=== PATIENT | male | born 1950 | race African-American/Black ===

== ENCOUNTER 2018-07-17 16:05 | Outpatient (CLI) | payer MEDICARE ==
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
--- NOTE | 2018-07-17 17:19 | CT ---
Noncontrast low-dose CT thorax HISTORY:Nicotine abuse. COMPARISON: None TECHNIQUE: Low-dose screening lung CT is performed utilizing institutional protocol FINDINGS: There are a few scattered calcified granulomata within the lungs bilaterally. There is a noncalcified subpleural pulmonary nodule at the posterior lateral left lung base measuring 4 mm. No additional discrete pulmonary nodule is appreciated. There is mild bronchiectasis seen predominantly within the lower lobes and to a lesser extent in the upper lobes. There is mild peribronchial thickening involving the lower lobe bronchi. Adjacent groundglass densities are seen in the region of the peribronchial thickening likely attributable to i nfectious/inflammatory process. There are scattered groups of thin-walled cystic areas seen within the upper and lower lobes bilatera lly. This is related to chronic findings and may potentially be related to mild varicoid bronchiectasis scattered within the lungs. This examination is obtained without IV contrast which limits evaluation of the mediastinal and hilar structures. However, there does appear to be a 2.9 cm left hilar mass present. While this could be related to prominent vascular structure in this region, this is asymmetric compared to the contralate ral right side and is larger in size than expected for a vessel at this site. There is a mildly enlarged pretracheal lymph node seen measuring 1.3 cm in short axis dimension. Vascular calcifications are seen in the coronary arteries and involving the thoracic aorta. There are calcifications partially imaged within the gallbladder. IMPRESSION: 1. Lung RADS category 2-approximately 4 mm pulmonary nodule left lung base. Continued annual screenin g low dose CT scan in 12 months is recommended. 2. Lung Rads category S: Left hilar masslike structure unable to be further assessed due to lack of i ntravenous contrast. CT thorax with IV contrast is recommended for further evaluation. 3. Lung Rads category S: Mild bronchiectasis with mild peribronchial thickening greater in the lung b ases with scattered groundglass densities also greater in the lower lobes bilaterally suggesting infectious or inflammatory process. 4. Cholelithiasis.
== END 2018-07-17 16:06 | disposition home or self-care (01) ==
LOC: CT 16:05
PROVIDERS: ATTEND Internal Medicine
DX: F17.210 Nicotine dependence, cigarettes, uncomplicated (principal); R91.1 Solitary pulmonary nodule; J47.9 Bronchiectasis, uncomplicated; R91.8 Other nonspecific abnormal finding of lung field; K80.20 Calculus of gallbladder without cholecystitis without obstruction
CPT/HCPCS: 71046; G0297

== ENCOUNTER 2018-07-24 08:13 | Outpatient (CLI) | payer MEDICARE ==
--- NOTE | 2018-07-24 09:11 | ULT ---
ULTRASOUND RETROPERITONEUM LIMITED: (ABDOMINAL AORTA) DATE: 07/24/2018 HISTORY: Follow-up abdominal aortic aneurysm. FINDINGS: The caliber of the known fusiform aneurysm in the infrarenal abdominal aorta is approximately 3 cm AP X 3.7 cm transverse as measured on transverse ultrasound image. Follow-up CT would facilitate apples to apples comparison with CT lumbar spine of 09/01/2016 which first showed the aneurysm. IMPRESSION: 3 x 3.7 cm fusiform infrarenal abdominal aortic aneurysm.
== END 2018-07-24 08:14 | disposition home or self-care (01) ==
LOC: ULT 08:13
PROVIDERS: ATTEND Internal Medicine
DX: I71.4 Abdominal aortic aneurysm, without rupture (principal)
CPT/HCPCS: 76775

== ENCOUNTER 2019-08-12 11:30 | Inpatient (IN) | payer MEDICARE, OTHER ==
[2019-08-12 14:57] VITALS: BMI 27.1
[2019-08-12] MEDS ORDERED: Sodium Chloride 0.9% (PF) 10 ML VIAL FS PRN (16:05)
[2019-08-12] MEDS ORDERED: Dextrose 5% in Water 1,000 ML IV PRN (16:07)
[2019-08-12] MEDS ORDERED: Dextrose 50% Abboject 50 ML SYRINGE IVP PRN (16:07)
--- NOTE | 2019-08-12 16:22 | CON ---
DATE OF CONSULTATION: 08/12/2019 HISTORY OF PRESENT ILLNESS: Mr. Galindo is a very pleasant 68-year-old male. He was sent to my office last week, referred for left hilar mass. He was able to give a limited history. His told me that for 2 weeks prior to visit with me, he had difficulty finding words. PAST MEDICAL HISTORY: Remarkable for; 1. Diabetes. 2. Hypertension. 3. Long history of tobacco use, still smoking. 4. History of lipid disorder. 5. History of surgery on his left upper extremity. SOCIAL HISTORY: He is a pack and a half smoker. He drinks on the weekends. MEDICATIONS: Have been reviewed. FAMILY HISTORY: Negative for lung disease in early age. PHYSICAL EXAMINATION: GENERAL: He is in no distress. VITAL SIGNS: Blood pressure 114/69, heart rate 76, respiratory rate is 18, oximetry is 97% on room air. He is afebrile. LYMPH NODES: He has no cervical or supraclavicular lymph nodes. HEAD AND NECK: Otherwise unremarkable. LUNGS: Clear. HEART: Regular rhythm. S1, S2 are normal. No murmur. ABDOMEN: Soft and nontender. EXTREMITIES: Without clubbing, cyanosis, or edema. LABORATORY DATA: White count 10.3, hemoglobin 16.6, platelets 258 in 2013. There is no lab drawn yet for today. IMAGING DATA: MRI done yesterday showed multiple brain lesions. He has been admitted for workup and treatment of that. IMPRESSION AND PLAN: Metastatic lung cancer, cell type unknown. He will undergo bronchoscopy on morning. He will start on IV steroids today. Radiation Oncology will be consulted once we have a tissue diagnosis. Oncology will be consulted. This is a 70 minute admit, 50% of the time spent on the unit coordinating care. Job ID: [id number] MTDD
[2019-08-12] MEDS ORDERED: Pantoprazole 40 MG VIAL IVP SCH (17:00)
[2019-08-12] MEDS ORDERED: Acetaminophen/Codeine 30-300mg Tablet PO PRN (17:10)
[2019-08-12] MEDS: Dexamethasone 4 mg/ml Vial SLOW IVP SCH ×2 (17:45→23:06)
[2019-08-12] MEDS: metFORMIN 500 MG TAB PO SCH (17:47)
[2019-08-12] MEDS: Nicotine 7 MG PATCH TOP SCH (17:47)
[2019-08-12] MEDS: Montelukast Sodium 10 mg Tablet PO SCH (20:36)
[2019-08-12] MEDS: Atorvastatin Calcium 20 MG TAB PO SCH (20:36)
--- NOTE | 2019-08-12 23:40 | CON ---
DATE OF CONSULTATION: 08/12/2019 REASON FOR CONSULTATION: Mr. Galindo is a 68-year-old gentleman, who appears to have brain metastasis from a clinical stage IV, T1c N3 M1 lung carcinoma. I was asked to see him for consideration of radiation therapy. HISTORY OF PRESENT ILLNESS: Mr. Galindo is having difficulty with his speech and therefore is only able to give a somewhat limited history. He did have a CT scan of the chest a year ago after he had an abnormal CT of the chest for screening, which showed some left hilar adenopathy and some nonspecific mediastinal lymph nodes. More recently, he has been having some difficulty with word finding and he underwent an MRI of the brain, which showed multiple contrast-enhancing lesion with surrounding vasogenic edema. The largest measured 3.6 cm in the left frontal lobe. There was some mass effect. About 11 days ago, he had a CT scan of the chest, which showed a left hilar mass measuring 2.9 cm. There was subcarinal, mediastinal, and right hilar lymphadenopathy. Findings were concerning for lung cancer. He was admitted today because of his symptoms. He will be started on dexamethasone in the near future. Presently, he is not having headaches or nausea or vomiting. He denies any chest pain. Again, his history is somewhat limited because of his word-finding difficulties. PAST MEDICAL HISTORY: 1. Diabetes. 2. Hypertension. 3. Hypercholesterolemia. 4. History of surgery on his left shoulder. MEDICATIONS: 1. DuoNeb nebulizers. 2. Lipitor. 3. Celexa. 4. Decadron. 5. Insulin p.r.n. 6. Zestril. 7. Metformin. 8. Singulair. 9. Nicoderm patch. 10. Protonix. 11. Tamsulosin. ALLERGIES: NO KNOWN MEDICAL ALLERGIES. SOCIAL HISTORY: He lives in [place], [place] with his . He does smoke 1.5 packs per day. He also drinks alcohol on the weekends. Again because of his speech difficulties, not able to quantify how much. FAMILY HISTORY: His sister from "bone cancer." His mother in her 70s from diabetes. His father has , the cause of is unknown to him. There is no other family history of malignancies. REVIEW OF SYSTEMS: Twelve system review of systems is otherwise negative. PHYSICAL EXAMINATION: VITAL SIGNS: Height 5 feet 9 inches and weight 184 pounds. Blood pressure is 113/64, pulse is 79, respirations are 18, temperature 97.5, O2 saturation is 99%. CONSTITUTIONAL: He is alert and oriented, but having difficulty with his speech. His understanding and comprehension appear to be excellent. Karnofsky performance status is 70%. HEENT: Eyes; pupils are equal, round, and reactive to light. Extraocular movements are intact. ENT; oral cavity and oropharynx normal without lesion or erythema. Palate elevates symmetrically. Gingiva is intact. NECK: Supple without preauricular, submandibular, cervical, or supraclavicular adenopathy. No thyromegaly. Larynx midline. LUNGS: Breathing nonlabored. Clear to auscultation and percussion. CARDIOVASCULAR: Heart, regular rate and rhythm without murmur. No lower extremity edema. BACK: No tenderness on fist percussion of his spine. LYMPHATIC: No axillary or inguinal adenopathy. ABDOMEN: Soft, nontender, nondistended without mass or hepatosplenomegaly. Liver percusses to normal size. SKIN: Without rash or purpura. NEUROLOGIC: He does follow commands appropriately. Cranial nerves 2 through 12 are grossly intact. Motor strength is 5/5 in both upper and lower extremities in all muscle groups tested. Reflexes are diminished, but symmetrical. Gait was not tested. RADIOLOGIC DATA: CT scan of the chest from June 2018 as well as from July 2019, and MRI of the brain from July [address] of the abdomen was also personally reviewed. CT of the chest shows worsening since 1 year ago. He has a hilar mass measuring 2.9 cm. He has subcarinal, mediastinal, and right hilar adenopathy. Mediastinal adenopathy is both ipsilateral and contralateral. He has no evidence of bone or liver metastasis. MRI of the brain shows at least 8 contrast-enhancing lesions. The largest 3.6 cm in the left frontal lobe with surrounding vasogenic edema and mass effect. He also has a 1.2 cm lesion in the nadia. ASSESSMENT: Mr. Galindo is a 68-year-old gentleman who appears to have a clinical stage IV, T1c N3 M1 lung carcinoma with brain metastasis. He does not yet have tissue diagnosis. PLAN: The patient has seen Dr. Sauceda who is planning a bronchoscopy on to get tissue diagnosis. This could potentially be a small cell carcinoma of the lung or possibly even a non-small cell carcinoma of the lung. He will soon be initiated on dexamethasone. I agree with that to reduce the vasogenic edema. Hopefully, his speech will improve while on the steroids. First priority after that is to get tissue diagnosis. We can then depending on the tissue type think about how to appropriately treat him. I think he is going to need to be treated with whole-brain radiation therapy. He has too many lesions and too much volume of disease to undergo radiosurgery. The logistics of radiation as well as the benefits and risk of treatment were discussed with him. The simulation and daily treatment procedure were discussed. Side effects would include, but not be limited to skin reaction, fatigue, lower blood counts, hair losses maybe permanent, headache, nausea, vomiting, and long-term affects of radiation on the cognition including memory difficulties. In regard to the cognitive effects of radiation therapy, I would recommend that he take Namenda during the radiation and for 6 months afterwards, which has been shown to reduce the cognitive effects from radiation therapy. Time was taken to answer all the questions at this point in the process. We will get tissue diagnosis and then again discuss with him the possibility of treatment depending on the exact tissue type. Thank you for this interesting consultation. Job ID: [id number]
[2019-08-13 04:11] LABS: #Monocytes 0.2 thou/uL (0.11-0.59); #Neutrophils 6.1 thou/uL (1.40-6.50); %Basophils 0.2 % (0.0-1.0); %Eosinophils 0.1 % (0.0-10.0); %Lymphocytes 13.9 % (21.0-51.0); %Monocytes 2.2 % (0.0-10.0); %Neutrophils 83.5 % (42.0-75.0); Hemoglobin 13.8 g/dL (14.0-18.0); Mean Corpuscular HGB CONC 33.1 g/dL (32.0-36.0); Mean Corpuscular Hemoglobin 32.1 pg (27.0-31.0); Mean Corpuscular Volume 96.8 fL (78.0-98.0); Mean Platelet Volume 8.3 fL (7.4-10.4); Platelet Count 285 thou/uL (130-400); RBC Distribution Width 11.7 % (11.5-14.5); White Blood Cell (WBC) Count 7.3 thou/uL (4.8-10.8)
[2019-08-13 04:25] LABS: ALT (SGPT) 21 U/L (8-55); AST (SGOT) 16 U/L (5-34); Albumin 3.5 g/dL (3.4-4.8); Alkaline Phosphatase 86 U/L (40-110); Anion Gap 12 mmol/L (10-20); BUN (Urea Nitrogen) 16 mg/dL (8.4-25.7); Bilirubin, Direct 0.2 mg/dL (0.1-0.3); Bilirubin, Total 0.3 mg/dL (0.2-1.2); Calc. Creatinine Clearance 91 mL/min (70-130); Calcium 9.2 mg/dL (7.8-10.44); Carbon Dioxide 23 mmol/L (23-31); Chloride 105 mmol/L (98-107); Estimated GFR-MDRD Greater than 90; Glucose 143 mg/dL (80-115); Potassium 4.5 mmol/L (3.5-5.1); Protein, Total 8.4 g/dL (5.8-8.1); Sodium 135 mmol/L (136-145)
[2019-08-13] MEDS: Dexamethasone 4 mg/ml Vial SLOW IVP SCH ×4 (05:41→23:34)
[2019-08-13] MEDS: metFORMIN 500 MG TAB PO SCH ×2 (10:17→17:39)
[2019-08-13] MEDS: Tamsulosin HCl 0.4 MG CAP PO SCH (10:17)
[2019-08-13] MEDS: Citalopram 10 MG TAB PO SCH (10:18)
[2019-08-13] MEDS: Pantoprazole 40 MG VIAL IVP SCH (10:18)
[2019-08-13] MEDS: Lisinopril 2.5 MG TAB PO SCH (10:18)
[2019-08-13] MEDS ORDERED: Prevnar 13-Val Conj/PF 0.5 ML SYRINGE IM ONE (15:45)
[2019-08-13] MEDS: Nicotine 7 MG PATCH TOP SCH (15:53)
--- NOTE | 2019-08-13 16:52 | PRG ---
DATE OF SERVICE: 08/13/2019 SUBJECTIVE: Mr. Galindo is in no distress. His speech has not improved yet hopefully well. OBJECTIVE: VITAL SIGNS: Heart rate is 100, respiratory rate is 20, and oximetry is 95% on room air. LUNGS: Unchanged. HEART: Unchanged. ABDOMEN: Unchanged. IMPRESSION: 1. Lung mass. 2. Brain metastasis. I agree with Dr. Gage and most likely this will be small cell. Risks of bleeding, infection of lung, collapse of lung, less likely with bronchoscopy were explained. He is willing to proceed forward with bronchoscopy tomorrow. Job ID: [id number]
[2019-08-13] MEDS: Montelukast Sodium 10 mg Tablet PO SCH (21:17)
[2019-08-13] MEDS: Atorvastatin Calcium 20 MG TAB PO SCH (21:17)
[2019-08-14] MEDS: Dexamethasone 4 mg/ml Vial SLOW IVP SCH ×4 (05:40→23:41)
[2019-08-14] MEDS: metFORMIN 500 MG TAB PO SCH ×2 (08:00→18:42)
[2019-08-14] MEDS: Lisinopril 2.5 MG TAB PO SCH (09:00)
[2019-08-14] MEDS: Tamsulosin HCl 0.4 MG CAP PO SCH (09:00)
[2019-08-14] MEDS: Pantoprazole 40 MG VIAL IVP SCH (09:00)
[2019-08-14] MEDS: Citalopram 10 MG TAB PO SCH (09:00)
[2019-08-14 11:57] LABS: SARS-CoV-2 MS2 Positive; SARS-CoV-2 N Gene Negative; SARS-CoV-2 S Gene Negative; SARS-CoV-2 orf1ab Negative
[2019-08-14] MEDS ORDERED: Fentanyl 100 MCG/2 ML VIAL ONE (13:29)
[2019-08-14] MEDS ORDERED: Midazolam HCl 2 mg/2 ml Vial ONE (13:29)
[2019-08-14] MEDS ORDERED: SUGAMMADEX SODIUM 200 MG/2 ML VIAL ONE (14:26)
[2019-08-14] MEDS ORDERED: Ondansetron HCl/PF 4 MG/2 ML Vial IVP PRN (14:47)
[2019-08-14] MEDS ORDERED: Rocuronium Bromide 10 MG/ML (10ML VIAL) ONE (15:13)
[2019-08-14] MEDS ORDERED: Ondansetron PF 4 MG/2 ML Vial ONE (15:13)
[2019-08-14] MEDS ORDERED: diphenhydrAMINE 50 MG/ML VIAL ONE (15:13)
[2019-08-14] MEDS ORDERED: Dexamethasone 20 MG/5 ML VIAL ONE (15:13)
[2019-08-14] MEDS ORDERED: PROPOFOL 200 MG/20 ML VIAL ONE (15:13)
[2019-08-14] MEDS ORDERED: Lidocaine 1% PF 5 ML VIAL ONE (15:13)
[2019-08-14] MEDS: Nicotine 7 MG PATCH TOP SCH (18:45)
[2019-08-14] MEDS: Atorvastatin Calcium 20 MG TAB PO SCH (21:11)
[2019-08-14] MEDS: Montelukast Sodium 10 mg Tablet PO SCH (21:11)
--- NOTE | 2019-08-15 05:53 | OP ---
DATE OF PROCEDURE: 08/14/2019 PROCEDURE: Bronchoscopy. Sedation was by Anesthesia. DESCRIPTION OF PROCEDURE: The patient was intubated by Anesthesia and sedated. Bronchoscope was introduced via the endotracheal tube. Right lower lobe, right middle lobe, right upper lobe were visualized. No endobronchial lesions were seen. Partially-obstructing left upper lobe mass was seen. A partially-obstructing left lower lobe mass was seen. These were biopsied and brushed and washed. There was minimal bleeding. The patient tolerated the procedure well. He was transferred to recovery room in stable condition. Job ID: [id number]
[2019-08-15] MEDS: Dexamethasone 4 mg/ml Vial SLOW IVP SCH ×4 (05:59→23:57)
[2019-08-15] MEDS: Lisinopril 2.5 MG TAB PO SCH (08:32)
[2019-08-15] MEDS: Tamsulosin HCl 0.4 MG CAP PO SCH (08:33)
[2019-08-15] MEDS: Citalopram 10 MG TAB PO SCH (08:33)
[2019-08-15] MEDS: metFORMIN 500 MG TAB PO SCH ×2 (08:33→17:24)
[2019-08-15] MEDS: Pantoprazole 40 MG VIAL IVP SCH (08:34)
--- NOTE | 2019-08-15 13:31 | PRG ---
DATE OF SERVICE: 08/15/2019 SUBJECTIVE: Mr. Galindo is doing better today. His speech is much improved. He is having no headaches, nausea, or vomiting. He tolerated the bronchoscopy well yesterday. He has no pain or shortness of breath. He voices no other complaints. OBJECTIVE: VITAL SIGNS: Height 5 feet 9 inches, weight 184 pounds. Blood pressure 118/65, pulse is 79, respirations are 18, temperature 97.6, O2 saturation is 97%. CONSTITUTIONAL: He is alert and oriented and in no apparent distress. He is well developed and well nourished. Karnofsky performance status is 80%. Speech is much improved. HEENT: Eyes; pupils are equal, round, and reactive to light. Extraocular movements are intact. ENT; oral cavity and oropharynx are normal without lesion or erythema. Palate elevates symmetrically. Gingiva is intact. NECK: Supple without cervical or supraclavicular adenopathy. No thyromegaly. Larynx midline. LUNGS: Breathing nonlabored. Clear to auscultation. HEART: Regular rate and rhythm without murmur. No lower extremity edema. ABDOMEN: Soft, nontender, and nondistended without mass or hepatosplenomegaly. Liver percusses normal size. NEUROLOGIC: Cranial nerves 2 through 12 are grossly intact. Motor strength is 5/5 in both upper and lower extremities in all muscle groups tested. Reflexes were not tested. Speech is much improved. LABORATORY DATA: Pathology is currently pending from his bronchoscopy yesterday. ASSESSMENT: Mr. Galindo is a 68-year-old gentleman, who appears clinically to have a stage IV lung cancer. This is likely going to be small-cell carcinoma of the lung, although [id number] is also possibility. Pathology is currently pending. He has multiple brain metastases. PLAN: He is not a candidate for radiosurgery because of the number of lesions that he has in the brain and the volume of disease that he has in the brain. I think he is best managed with whole-brain radiation therapy. Regardless of which type of lung cancer he has, I think this is going to be the treatment of choice. This recommendation was made to him again today. The logistics of radiation as well as the benefits and risk of treatment were discussed. The simulation and daily treatment procedure were discussed. Side effects would include, but not be limited to skin reaction, fatigue, lower blood counts, headache, nausea, vomiting, hair loss which may be permanent, and small risk of damage to his brain which could cause cognitive effects. I have recommended that he take Namenda while on the radiation therapy. I will initiate this. Time was taken to answer his questions and his 's questions regarding his treatment options. He is agreeable to proceed with radiation as recommended. We will make arrangements for him to undergo simulation in the near future. Job ID: [id number]
--- NOTE | 2019-08-15 13:39 | PRG ---
DATE OF SERVICE: 08/15/2019 SUBJECTIVE: Speech is a little better today. He is a little quicker to respond to questions. OBJECTIVE: VITAL SIGNS: He is afebrile, heart rate 79, respiratory rate is 18, oximetry is 97%, blood pressure 118/65. LUNGS: Clear. HEART: Regular rhythm. ABDOMEN: Soft. LABORATORY DATA: Biopsies are pending. ASSESSMENT AND PLAN: Discussed treatment with Dr. Gage. Plan, which is what the wants, is to start him on radiation beginning on the next week once he is plugged into the system and discharging for outpatient radiation therapy. Hopefully, we will have pathology by Sunday. Job ID: [id number]
[2019-08-15] MEDS: Nicotine 7 MG PATCH TOP SCH (17:24)
[2019-08-15] MEDS: Atorvastatin Calcium 20 MG TAB PO SCH (20:12)
[2019-08-15] MEDS: Montelukast Sodium 10 mg Tablet PO SCH (20:12)
[2019-08-15] MEDS: Sodium Chloride 0.45% 1,000 ML IV SCH (23:59)
[2019-08-16] MEDS: Dexamethasone 4 mg/ml Vial SLOW IVP SCH ×3 (05:24→18:01)
[2019-08-16] MEDS: Lisinopril 2.5 MG TAB PO SCH (08:43)
[2019-08-16] MEDS: metFORMIN 500 MG TAB PO SCH ×2 (08:44→18:00)
[2019-08-16] MEDS: Citalopram 10 MG TAB PO SCH (08:44)
[2019-08-16] MEDS: Pantoprazole 40 MG VIAL IVP SCH (08:44)
[2019-08-16] MEDS: Tamsulosin HCl 0.4 MG CAP PO SCH (08:44)
--- NOTE | 2019-08-16 15:09 | PRG ---
DATE OF SERVICE: 08/16/2019 SUBJECTIVE: The patient is doing okay. He has no acute complaints. He is apparently scheduled to start radiation therapy to the brain on Sunday. OBJECTIVE: VITAL SIGNS: Temperature 97.7, pulse 90, respirations 18, O2 sat 97%, and blood pressure 158/81. HEENT: Unremarkable. NECK: No adenopathy or JVD. CHEST: Clear to auscultation. CARDIAC: S1 and S2, regular. ABDOMEN: Soft. EXTREMITIES: No edema. His pathology is pending. ASSESSMENT: Lung cancer with metastasis to the brain. PLAN: Hopefully home by Sunday or Sunday. Family tells me that Dr. Gage and Dr. Sauceda wanting him to be in the hospital for the first radiation treatment. Job ID: [id number]
[2019-08-16] MEDS: Nicotine 7 MG PATCH TOP SCH (18:00)
[2019-08-16] MEDS: Bisacodyl 5 MG TAB PO PRN (18:00)
[2019-08-16] MEDS: Atorvastatin Calcium 20 MG TAB PO SCH (20:34)
[2019-08-16] MEDS: Montelukast Sodium 10 mg Tablet PO SCH (20:34)
[2019-08-17] MEDS: Dexamethasone 4 mg/ml Vial SLOW IVP SCH ×3 (00:25→12:08)
[2019-08-17] MEDS: Insulin Regular 300 UNITS/3 ML VIAL SC PRN ×2 (05:53→12:08)
[2019-08-17] MEDS: Tamsulosin HCl 0.4 MG CAP PO SCH (08:30)
[2019-08-17] MEDS: Lisinopril 2.5 MG TAB PO SCH (08:30)
[2019-08-17] MEDS: metFORMIN 500 MG TAB PO SCH ×2 (08:31→17:39)
[2019-08-17] MEDS: Citalopram 10 MG TAB PO SCH (08:31)
[2019-08-17] MEDS: Bisacodyl 5 MG TAB PO PRN (08:31)
[2019-08-17] MEDS: Pantoprazole 40 MG VIAL IVP SCH (08:31)
--- NOTE | 2019-08-17 13:06 | PRG ---
DATE OF SERVICE: 08/17/2019 SUBJECTIVE: The patient is doing reasonably well. He has had no seizure activity. No numbness, no tingling. OBJECTIVE: VITAL SIGNS: Temperature 98.4, pulse 85, respirations 16, O2 saturation 95% on room air, blood pressure 124/66. HEENT: Unremarkable. NECK: No adenopathy or JVD. CHEST: Clear. CARDIAC: S1, S2. Regular. ABDOMEN: Soft. EXTREMITIES: No edema. ASSESSMENT: The patient has metastatic lung cancer. PLAN: Await pathology results. I believe he will have radiation therapy starting tomorrow. Can likely go home Sunday if everything is okay. Job ID: [id number]
[2019-08-17] MEDS: Nicotine 7 MG PATCH TOP SCH (17:39)
[2019-08-17] MEDS: Dexamethasone 1 MG TAB PO SCH (17:39)
[2019-08-17] MEDS: Atorvastatin Calcium 20 MG TAB PO SCH (21:31)
[2019-08-17] MEDS: Montelukast Sodium 10 mg Tablet PO SCH (21:31)
[2019-08-18] MEDS: Citalopram 10 MG TAB PO SCH (08:40)
[2019-08-18] MEDS: Lisinopril 2.5 MG TAB PO SCH (08:44)
[2019-08-18] MEDS: Dexamethasone 1 MG TAB PO SCH ×2 (08:44→16:08)
[2019-08-18] MEDS: Tamsulosin HCl 0.4 MG CAP PO SCH (08:45)
[2019-08-18] MEDS: metFORMIN 500 MG TAB PO SCH ×2 (08:45→16:08)
--- NOTE | 2019-08-18 10:13 | PRG ---
DATE OF SERVICE: 08/18/2019 SUBJECTIVE: Ezra Galindo, this morning, is awake, alert, and responsive. No respiratory distress. OBJECTIVE: VITAL SIGNS: Temperature 98, blood pressure 110/62, pulse 72, saturations 98% on room air. CHEST: Decreased breath sounds in left lung. CARDIAC: Normal S1, S2. No gallops. ABDOMEN: No masses. ASSESSMENT AND PLAN: Metastatic cancer, awaiting final path. He was started on Decadron, neb treatments, supportive care. Await path. Disposition thereafter home. Followup by Oncology as outpatient. Job ID: [id number]
[2019-08-18] MEDS: Nicotine 7 MG PATCH TOP SCH (16:09)
[2019-08-18] MEDS: Sodium Chloride 0.45% 1,000 ML IV SCH (16:14)
[2019-08-18] MEDS: Atorvastatin Calcium 20 MG TAB PO SCH (20:53)
[2019-08-18] MEDS: Montelukast Sodium 10 mg Tablet PO SCH (20:54)
--- NOTE | 2019-08-18 22:57 | CON ---
DATE OF CONSULTATION: REASON FOR CONSULTATION: Lung cancer. HISTORY OF PRESENT ILLNESS: Mr. Galindo is a pleasant 68-year-old gentleman with an [id number] history of smoking, who had a CT of the lung for screening in June 2018. There was some mild abnormality, so then he underwent a chest CT in 2018 that showed a 2.4 cm lymph node of the left hilar area. It was unclear what happened over the next year. However, he presented in June 2019 to his primary care for weight loss. Repeat CT scan showed the left hilar mass measuring 4 x 6 x 6.5 cm. He was referred to Dr. Sauceda and seen in his office. He was having some difficulty giving history. A brain MRI was ordered, which showed a mass in the left frontal lobe with surrounding vasogenic edema measuring 2.8 x 3.6 x 3 cm. There was a cerebral edema with a [id number] shift measuring 3.4 mm. There were other small enhancing lesions all consistent with metastatic disease. The patient was admitted for further treatment. Dr. Gage was consulted and has started whole-brain radiation. He did undergo a bronchoscopy by Dr. Sauceda and path results were consistent with a non-small cell lung cancer, squamous cell type. We were asked to see the patient for recommendations on treatment. The patient was seen at bedside with his present. He denies any specific complaints at this time. He admits to over 20 pounds weight loss, although his appetite is excellent. He denies hemoptysis, shortness of breath, or abdominal pain. No difficulty with bowels or bladder. PAST MEDICAL HISTORY: 1. Diabetes. 2. Hypertension. 3. Lipid disorder. PAST SURGICAL HISTORY: Left shoulder surgery and lung biopsy. ALLERGIES: NO KNOWN DRUG ALLERGIES. HOME MEDICATIONS: 1. Tylenol No. 3. 2. Lipitor. 3. Zestril. 4. Glucophage. 5. Flomax. FAMILY HISTORY: No history of known lung cancer. SOCIAL HISTORY: , lives with his in [place], [id number] smoking. Drinks alcohol on the weekends. REVIEW OF SYSTEMS: A 10-point review of systems is negative. PHYSICAL EXAMINATION: VITAL SIGNS: Temperature is 98.4, pulse is 100, respiratory rate 16, and blood pressure is 110/62. He is 98% on room air. GENERAL: A well-developed, well-nourished male, in no acute distress. HEENT: Normocephalic and atraumatic. Pupils are equal and reactive to light. NECK: Supple. CV: Regular rate and rhythm. LUNGS: Clear anterior. ABDOMEN: Soft and nontender. Bowel sounds are positive. EXTREMITIES: No clubbing or cyanosis. SKIN: No rash. HEMATOLOGIC: No petechiae or purpura. NEUROLOGIC: The patient follows commands and moves all extremities. PERTINENT LABORATORY DATA AND X-RAYS: WBCs 7.3, hemoglobin 13.8, hematocrit 41.6, platelet count is 285,000, he has 83% neutrophils, 14% lymphocytes. Sodium 135, potassium 4.5, chloride 105, CO2 is 23, BUN is 16, creatinine 0.93, calcium 9.2. Bilirubin 0.3, AST 16, ALT is 21, alkaline phosphatase is 86. Serum total protein is 8.4, albumin 3.4, globulin 4.5, and PSA is 0.89. TSH is normal. COVID is negative. 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 DISCUSSION: Case will be discussed with Dr. Mosher. The patient was seen at bedside with his present. We discussed the usual plan of care, which is to complete whole-brain radiation over the next two weeks and continue steroids. He will be seen in our office after radiation and at that point, will likely be started on some sort of chemoimmunotherapy. Immunohistochemical stain profile has been sent, and is currently pending. Our clinic information was provided to the and we will try to get him an appointment before he is discharged home, which could be at any time from our perspective. Thank you for the consult. Job ID: [id number] MTDD
[2019-08-19 08:08] VITALS: BP 107/65; TEMP 98.1
[2019-08-19] MEDS: Dexamethasone 1 MG TAB PO SCH ×2 (09:12→14:27)
[2019-08-19] MEDS: metFORMIN 500 MG TAB PO SCH (09:13)
[2019-08-19] MEDS: Tamsulosin HCl 0.4 MG CAP PO SCH (09:13)
[2019-08-19] MEDS: Citalopram 10 MG TAB PO SCH (09:13)
[2019-08-19] MEDS: Lisinopril 2.5 MG TAB PO SCH (09:13)
--- NOTE | 2019-08-19 10:41 | DIS ---
DATE OF ADMISSION: 08/12/2019 DATE OF DISCHARGE: 08/19/2019 DIAGNOSES: Metastatic squamous cell carcinoma, underlying diabetes, hypertension, lipid disorder, tobacco abuse. HOME MEDICATIONS: He will continue: 1. Flomax 0.4. 2. Lisinopril 2.5. 3. Lipitor 20. 4. Metformin 1000 twice a day. 5. He had been given a prescription for Decadron 2 mg twice a day. He can be followed by Dr. Gage, his oncologist, as well as Dr. Mosher in the clinic. He will see his primary care physician. Additionally, he will see Dr. Sauceda as needed. HOSPITAL COURSE: Mr. Galindo is a 68-year-old gentleman, who was admitted with an abnormal CT and chest x-ray. Bronchoscopy revealed squamous cell carcinoma, metastatic. He has received radiation by Dr. Gage PHYSICAL EXAMINATION: GENERAL: At the time of discharge, he is stable. VITAL SIGNS: Temperature 98, pulse 72, saturations . CHEST: No wheezing or crackles. CARDIAC: Normal S1, S2 . DISCHARGE DISPOSITION: Home. FOLLOWUP: Follow up with above-mentioned physicians. Job ID: [id number]
[2019-08-19] MEDS: Nicotine 7 MG PATCH TOP SCH (14:27)
== END 2019-08-19 14:55 | disposition home or self-care (01) | DRG 180 ==
LOC: ONC 13:28
PROVIDERS: ADMIT Internal Medicine Critical Care Medicine; ATTEND Internal Medicine Critical Care Medicine
PROC: 0B9J8ZX Drainage of Left Lower Lung Lobe, Via Natural or Artificial Opening Endoscopic, Diagnostic (ICD-10-PCS; principal; 2019-08-14)
PROC: 0BD88ZX Extraction of Left Upper Lobe Bronchus, Via Natural or Artificial Opening Endoscopic, Diagnostic (ICD-10-PCS; 2019-08-14)
DX: C34.12 Malignant neoplasm of upper lobe, left bronchus or lung (principal); G93.6 Cerebral edema; C79.31 Secondary malignant neoplasm of brain; E11.9 Type 2 diabetes mellitus without complications; I10 Essential (primary) hypertension; F17.210 Nicotine dependence, cigarettes, uncomplicated; Z79.84 Long term (current) use of oral hypoglycemic drugs; Z79.899 Other long term (current) drug therapy
CPT/HCPCS: 36415; 36416; 77014; 77280; 77290; 77307; 77334; 77412; 80048; 80076; 81210; 81235; 85025; 87635; 88104; 88112; 88305; 88341; 88342; 88360; 88377; 94640; C9113; J1100; J1200; J1815; J2001; J2250; J2405; J2704; J3010; J7620; J8540; U0003

== ENCOUNTER 2019-09-04 07:45 | Outpatient (CLI) | payer MEDICARE ==
--- NOTE | 2019-09-04 12:39 | PET ---
PET CT: HISTORY: 68-year-old male with malignant neoplasm of left main bronchus. Stage IV lung cancer. Exam requested for staging. Brain mets. TECHNIQUE: PET scanning with CT attenuation correction was performed from the base of the brain through the prox imal thighs following the intravenous administration of 11 mCi F18-FDG in the right antecubital fossa . COMPARISON: None. CORRELATION: CT abdomen and pelvis dated 07/25/2019. CT chest dated 07/31/2019. MRI brain dated 08/11/2019. FINDINGS: There is yehuda hypermetabolism, including the right supraclavicular lymph nodes with a SUV of 9, left supraclavicular lymph nodes with a SUV of 9.8, right paratracheal lymph nodes with a SUV of 16.1, an d superior mediastinal lymph nodes with SUV of 18.6, AP window lymph nodes with SUV of 13, subcarinal lymph nodes with SUV of 11, posterior mediastinal/left paraesophageal lymph node with SUV of 9.2, an d lymph nodes in the gastrohepatic ligament with SUV of 12.3. There is increased FDG localization of the left hilar/perihilar mass with a SUV of 18.1. No hypermetabolic liver or adrenal lesions are seen. There are two focal areas of increased FDG local ization in the left femoral head with SUVs of 14.7 and 7.3, respectively. There is physiologic activity in the GI and tracts, and the visualized portions of the brain. The CT scan used for attenuation correction demonstrates no evidence of pleural effusions or ascites. IMPRESSION: Left hilar/perihilar lung malignancy with lymph yehuda and osseous metastatic disease. POS: EFRAIN
== END 2019-09-04 07:46 | disposition home or self-care (01) ==
LOC: PET 07:45
PROVIDERS: ATTEND Internal Medicine Hematology & Oncology
DX: C34.02 Malignant neoplasm of left main bronchus (principal); C79.51 Secondary malignant neoplasm of bone; C77.1 Secondary and unspecified malignant neoplasm of intrathoracic lymph nodes
CPT/HCPCS: 78815; A9552

== ENCOUNTER 2019-12-12 09:52 | Outpatient (CLI) | payer MEDICARE ==
--- NOTE | 2019-12-12 13:33 | PET ---
PET CT: HISTORY: 68-year-old male with malignant neoplasm of left main bronchus. Stage IV lung cancer. Brain mets. Exa m requested to evaluate response to treatment and subsequent therapy planning. Patient is currently u ndergoing chemotherapy. Radiation to the brain was performed in August 2019. TECHNIQUE: PET scanning with CT attenuation correction was performed from the base of the brain through the prox imal thighs following the intravenous administration of 12 mCi F18-FDG in the right antecubital fossa . COMPARISON: 09/04/2019. FINDINGS: There is mild residual hypermetabolic activity in the right paratracheal lymph node with a current HUGHES V of 3 (previously 16). The remainder of the foci of abnormal tracer localization noted on the previo us study have resolved in the interim. A new focus of increased uptake is seen in the anterior aspect of the left third rib with a SUV of 4. The previously noted foci of increased uptake in the left femoral head has resolved. No hypermetabolic liver or adrenal lesions are identified. There is physiologic activity in the GI and tracts, and visualized portions of the brain. The CT scan used for attenuation correction demonstrates no evidence for pleural effusions or ascites . IMPRESSION: 1. Interval resolution of previously noted abnormalities with mild residual hypermetabolic activity in the right paratracheal lymph node since 09/04/2019. 2. New hypermetabolic focus in the anterior left third rib, suspicious for metastasis. POS: EFARIN
== END 2019-12-12 09:53 | disposition home or self-care (01) ==
LOC: PET 09:52
PROVIDERS: ATTEND Internal Medicine Hematology & Oncology
DX: C34.02 Malignant neoplasm of left main bronchus (principal)
CPT/HCPCS: 78815; A9552

== ENCOUNTER 2020-03-05 07:32 | Outpatient (CLI) | payer MEDICARE ==
--- NOTE | 2020-03-05 10:53 | PET ---
PET CT: HISTORY: 69-year-old male with malignant neoplasm of the left main bronchus. Stage IV lung cancer. Brain mets. Exam requested to evaluate for response to treatment and subsequent treatment planning. Patient had radiation therapy to the left hip in October 2019 and is currently undergoing chemotherapy. Radiation therapy to the brain was performed in August 2019. TECHNIQUE: PET scanning with CT attenuation correction was performed from the base of the brain through the prox imal thighs following the intravenous administration of 11.4 mCi F18-FDG in the right wrist. COMPARISON: 12/12/2019. FINDINGS: There is continued mild residual hypermetabolic activity in the right paratracheal lymph node with a current SUV of 2.8 (previously 3). No yehuda hypermetabolism is seen in the neck, axilla, hilar region s, abdomen, or pelvis. The focal area of increased uptake in the anterior aspect of the left third rib is again seen with a SUV of 3.4 (previously 4). No other hypermetabolic bone lesions are seen. No hypermetabolic liver or adrenal lesions are identified. There is physiologic activity in the GI and tracts, and the visualized portions of the brain. The CT scan used for attenuation correction demonstrates no evidence of pleural effusions or ascites. Cholelithiasis, liver cysts, and 3.5 cm infrarenal abdominal aortic aneurysm are stable. The parench ymal opacities in the lungs are again seen and stable, most prominent in the left lower lobe without abnormal FDG activity. IMPRESSION: Stable exam. No new hypermetabolic lesions are identified. POS: EFRAIN
== END 2020-03-05 07:33 | disposition home or self-care (01) ==
LOC: PET 07:32
PROVIDERS: ATTEND Internal Medicine Hematology & Oncology
DX: C34.90 Malignant neoplasm of unspecified part of unspecified bronchus or lung (principal)
CPT/HCPCS: 78815; A9552

== ENCOUNTER 2020-05-05 09:18 | Outpatient (CLI) | payer MEDICARE ==
[2020-05-05] MEDS ORDERED: Magnevist 469MG/ML 20 ML VIAL ONE (12:17)
== END 2020-05-05 09:19 | disposition home or self-care (01) ==
LOC: MRI 09:18
PROVIDERS: ATTEND Internal Medicine Hematology & Oncology
DX: C34.02 Malignant neoplasm of left main bronchus (principal); C79.31 Secondary malignant neoplasm of brain; G93.9 Disorder of brain, unspecified
CPT/HCPCS: 70553; A9579

== ENCOUNTER 2020-05-27 08:57 | Outpatient (CLI) | payer MEDICARE | END 2020-05-27 08:58 | disposition home or self-care (01) | LOC: PET 08:57 | PROVIDERS: ATTEND Internal Medicine Hematology & Oncology | DX: C71.9 Malignant neoplasm of brain, unspecified (principal); C34.02 Malignant neoplasm of left main bronchus | CPT/HCPCS: 78815; A9552 ==

== ENCOUNTER 2020-08-31 10:14 | Outpatient (CLI) | payer MEDICARE | END 2020-08-31 10:15 | disposition home or self-care (01) | LOC: PET 10:14 | PROVIDERS: ATTEND Internal Medicine Hematology & Oncology | DX: C34.02 Malignant neoplasm of left main bronchus (principal) | CPT/HCPCS: 78815; A9552 ==

== ENCOUNTER 2020-11-19 11:08 | Outpatient (CLI) | payer MEDICARE ==
[2020-11-19] MEDS ORDERED: Magnevist 469MG/ML 20 ML VIAL ONE (11:28)
== END 2020-11-19 11:09 | disposition home or self-care (01) ==
LOC: MRI 11:08
PROVIDERS: ATTEND Radiology Radiation Oncology
DX: C79.31 Secondary malignant neoplasm of brain (principal); C34.90 Malignant neoplasm of unspecified part of unspecified bronchus or lung
CPT/HCPCS: 70553; 82565; A9579

== ENCOUNTER 2020-11-30 11:08 | Outpatient (CLI) | payer MEDICARE | END 2020-11-30 11:09 | disposition home or self-care (01) | LOC: PET 11:08 | PROVIDERS: ATTEND Internal Medicine Hematology & Oncology | DX: C34.02 Malignant neoplasm of left main bronchus (principal) | CPT/HCPCS: 78815; A9552; 80048 ==

== ENCOUNTER 2020-12-05 18:53 | Inpatient (IN) | payer MEDICARE ==
[2020-12-05] MEDS ORDERED: Fentanyl CADD 100 ML IV SCH (19:15)
[2020-12-05 19:40] LABS: Actual Bicarbonate (HCO3a) 17.4 mEq/L (22-28); Analyzer IN Cardio ER; Base Excess (BEa) -7.8 mEq/L (-2.0 to +3.0); CO2 Tension 34.8 mmHg (35.0-45.0); Calcium, Ionized (arterial) 1.19 mmol/L (1.12-1.30); Carboxyhemoglobin (COHb) 0.3 gm% (0.0-3.0); Hemoglobin (Hb) 12.6 g/dL (14.0-18.0); Potassium - ABG Lab 3.93 mmol/L (3.70-5.30); pH, Arterial 7.32 (7.35-7.45)
[2020-12-05 19:42] LABS: Puncture Site RBA
[2020-12-05 20:24] LABS: SARS-CoV-2 NAA Rapid Test Not Detected (NotDetected)
[2020-12-05] MEDS ORDERED: Morphine 2 MG/ML VIAL SLOW IVP PRN (21:30)
[2020-12-05] MEDS ORDERED: DISCONTINUE PREVIOUS NARCOTIC PAIN MEDICATIONS AND BENZODIAZEPINES FS SCH (21:30)
[2020-12-05] MEDS ORDERED: Propofol BOLUS 1,000 MG/100 ML VIAL IV PRN (21:30)
[2020-12-05] MEDS ORDERED: Fentanyl BOLUS 250 ML IVPB PRN (21:30)
[2020-12-05] MEDS ORDERED: Propofol 1,000 MG/100 ML VIAL IV PRN (21:30)
[2020-12-05] MEDS ORDERED: Lorazepam 2 MG/ML VIAL SLOW IVP PRN (21:30)
[2020-12-05] MEDS ORDERED: Acetaminophen 650 MG Suppository PR PRN (23:29)
[2020-12-05] MEDS ORDERED: Ondansetron PF 4 MG/2 ML Vial IVP PRN (23:29)
[2020-12-05] MEDS ORDERED: HumaLOG 300 UNITS/3 ML VIAL SC PRN ×2 (23:39)
[2020-12-05] MEDS ORDERED: Ventilator Sedation Protocol 1 EACH FS SCH (23:45)
[2020-12-05] MEDS ORDERED: Lactated Ringer's 1,000 ML IV SCH (23:59)
[2020-12-06] MEDS ORDERED: Morphine 4 MG/ML VIAL SLOW IVP PRN (00:15)
[2020-12-06] MEDS ORDERED: Piperacillin/Tazobactam 3.375 GM in Sodium Chloride 0.9% 100 ML IVPB SCH (01:00)
[2020-12-06] MEDS ORDERED: Sodium Chloride 0.9% 1,000 ML IV SCH (02:00)
[2020-12-06 02:48] LABS: Band 20 % (5-11); Eosinophils 1 % (0-10); Hemoglobin 12.4 g/dL (14.0-18.0); Lymphocytes 12 % (21-51); MDiff Complete? YES; Mean Corpuscular HGB CONC 34.1 g/dL (32.0-36.0); Mean Corpuscular Hemoglobin 34.5 pg (27.0-31.0); Mean Platelet Volume 8.7 fL (7.4-10.4); Monocytes 6 % (0-10); Neutrophil 61 % (42-75); Platelet Count 213 thou/uL (130-400); RBC Distribution Width 11.6 % (11.5-14.5); Red Blood Cell (RBC) Count 3.59 mill/uL (4.70-6.10); White Blood Cell (WBC) Count 11.4 thou/uL (4.8-10.8)
[2020-12-06 02:50] LABS: Troponin I 0.031 ng/mL (< 0.028)
[2020-12-06] MEDS ORDERED: Dexamethasone 10 MG in Sodium Chloride 0.9% 50 ML IVPB SCH ×2 (03:00→09:00)
[2020-12-06 03:08] LABS: ALT (SGPT) 39 U/L (8-55); AST (SGOT) 59 U/L (5-34); Albumin 2.7 g/dL (3.4-4.8); Alkaline Phosphatase 89 U/L (40-110); Anion Gap 14 mmol/L (10-20); BUN (Urea Nitrogen) 30 mg/dL (8.4-25.7); Bilirubin, Total 0.6 mg/dL (0.2-1.2); Calc. Creatinine Clearance 36 mL/min (70-130); Calcium 8.9 mg/dL (7.8-10.44); Carbon Dioxide 20 mmol/L (23-31); Chloride 119 mmol/L (98-107); Globulin 3.6 g/dL (2.4-3.5); Glucose 136 mg/dL (80-115); Potassium 4.2 mmol/L (3.5-5.1); Protein, Total 6.3 g/dL (5.8-8.1); Sodium 149 mmol/L (136-145)
[2020-12-06] MEDS: Piperacillin/Tazobactam 3.375 GM in Sodium Chloride 0.9% 100 ML IVPB SCH ×3 (04:28→20:08)
[2020-12-06 05:59] LABS: Troponin I 0.023 ng/mL (< 0.028)
[2020-12-06 07:39] LABS: Actual Bicarbonate (HCO3a) 17.2 mEq/L (22-28); Base Excess (BEa) -7.1 mEq/L (-2.0 to +3.0); CO2 Tension 31.1 mmHg (35.0-45.0); Calcium, Ionized (arterial) 1.27 mmol/L (1.12-1.30); Carboxyhemoglobin (COHb) 0.3 gm% (0.0-3.0); Hemoglobin (Hb) 12.4 g/dL (14.0-18.0); O2 Tension (PaO2), arterial 175.1 mmHg (> 80.0); Potassium - ABG Lab 4.52 mmol/L (3.70-5.30); pH, Arterial 7.36 (7.35-7.45)
[2020-12-06 08:02] LABS: Puncture Site RBA
[2020-12-06 08:03] LABS: ALV-art Gradient 142.525 mmHg (0-20)
[2020-12-06] MEDS: Heparin 5,000 UNITS/ML VIAL SC SCH ×3 (08:47→20:08)
[2020-12-06] MEDS: Pantoprazole 40 MG VIAL IVP SCH (08:48)
[2020-12-06] MEDS: Lactated Ringer's 1,000 ML IV SCH ×2 (08:49→22:56)
[2020-12-06] MEDS ORDERED: Polyethylene Glycol 3350 17 GM Packet PO SCH (13:00)
[2020-12-06] MEDS: Vancomycin HCl 750 MG in Sodium Chloride 0.9% 250 ML 250 ML IVPB SCH (18:10)
[2020-12-07] MEDS: Piperacillin/Tazobactam 3.375 GM in Sodium Chloride 0.9% 100 ML IVPB SCH ×3 (04:36→20:14)
[2020-12-07 04:57] LABS: Band 6 % (5-11); Hemoglobin 10.7 g/dL (14.0-18.0); Lymphocytes 7 % (21-51); MDiff Complete? YES; Mean Corpuscular HGB CONC 32.3 g/dL (32.0-36.0); Mean Corpuscular Hemoglobin 32.8 pg (27.0-31.0); Mean Platelet Volume 9.3 fL (7.4-10.4); Monocytes 12 % (0-10); Myelocyte 1 % (0-0); Neutrophil 73 % (42-75); Platelet Count 225 thou/uL (130-400); RBC Distribution Width 11.7 % (11.5-14.5); Red Blood Cell (RBC) Count 3.27 mill/uL (4.70-6.10); White Blood Cell (WBC) Count 12.9 thou/uL (4.8-10.8)
[2020-12-07 05:07] LABS: Phosphorus 2.1 mg/dL (2.3-4.7)
[2020-12-07 05:12] LABS: ALT (SGPT) 35 U/L (8-55); AST (SGOT) 45 U/L (5-34); Albumin 2.7 g/dL (3.4-4.8); Alkaline Phosphatase 90 U/L (40-110); Anion Gap 14 mmol/L (10-20); BUN (Urea Nitrogen) 26 mg/dL (8.4-25.7); Bilirubin, Total 0.4 mg/dL (0.2-1.2); Calc. Creatinine Clearance 56 mL/min (70-130); Calcium 9.2 mg/dL (7.8-10.44); Carbon Dioxide 19 mmol/L (23-31); Chloride 121 mmol/L (98-107); Globulin 3.3 g/dL (2.4-3.5); Glucose 112 mg/dL (80-115); Magnesium 2.2 mg/dL (1.6-2.6); Potassium 4.3 mmol/L (3.5-5.1); Sodium 150 mmol/L (136-145)
[2020-12-07] MEDS ORDERED: Potassium Phosphate 9 MMOL in Sodium Chloride 0.9% 100 ML IVPB SCH (06:45)
[2020-12-07] MEDS ORDERED: Dextrose 5 %-0.45 % NaCl 1,000 ML IV SCH (07:15)
[2020-12-07] MEDS: Heparin 5,000 UNITS/ML VIAL SC SCH (09:36)
[2020-12-07] MEDS: Pantoprazole 40 MG VIAL IVP SCH (09:36)
[2020-12-07] MEDS: Polyethylene Glycol 3350 17 GM Packet PER TUBE SCH (09:37)
[2020-12-07 15:40] LABS: Anion Gap 14 mmol/L (10-20); BUN (Urea Nitrogen) 24 mg/dL (8.4-25.7); Calc. Creatinine Clearance 72 mL/min (70-130); Carbon Dioxide 18 mmol/L (23-31); Chloride 122 mmol/L (98-107); Glucose 137 mg/dL (80-115); Sodium 150 mmol/L (136-145)
[2020-12-07] MEDS ORDERED: Iopamidol-370 76% 500 ML 1 ML ONE (16:04)
[2020-12-07 17:49] LABS: Vancomycin, Trough 6.2 ug/mL
[2020-12-07] MEDS: Vancomycin HCl 750 MG in Sodium Chloride 0.9% 250 ML 250 ML IVPB SCH ×2 (18:29→18:58)
[2020-12-07] MEDS: Dextrose 5% in Water 1,000 ML IV SCH (18:29)
[2020-12-07] MEDS: Enoxaparin Sodium 80 MG/0.8 ML SYRINGE SC SCH (20:16)
[2020-12-08 04:29] LABS: ALT (SGPT) 36 U/L (8-55); AST (SGOT) 39 U/L (5-34); Albumin 2.6 g/dL (3.4-4.8); Alkaline Phosphatase 83 U/L (40-110); Anion Gap 13 mmol/L (10-20); BUN (Urea Nitrogen) 20 mg/dL (8.4-25.7); Bilirubin, Total 0.4 mg/dL (0.2-1.2); Calc. Creatinine Clearance 73 mL/min (70-130); Carbon Dioxide 18 mmol/L (23-31); Chloride 120 mmol/L (98-107); Globulin 3.4 g/dL (2.4-3.5); Glucose 112 mg/dL (80-115); Potassium 4.1 mmol/L (3.5-5.1); Sodium 147 mmol/L (136-145)
[2020-12-08] MEDS: Piperacillin/Tazobactam 3.375 GM in Sodium Chloride 0.9% 100 ML IVPB SCH ×3 (05:01→20:38)
[2020-12-08] MEDS: Vancomycin HCl 750 MG in Sodium Chloride 0.9% 250 ML 250 ML IVPB SCH ×2 (05:01→17:55)
[2020-12-08 05:07] LABS: Band 7 % (5-11); Hemoglobin 10.9 g/dL (14.0-18.0); Lymphocytes 15 % (21-51); MDiff Complete? YES; Mean Corpuscular HGB CONC 32.7 g/dL (32.0-36.0); Mean Corpuscular Hemoglobin 33.3 pg (27.0-31.0); Mean Platelet Volume 8.9 fL (7.4-10.4); Monocytes 7 % (0-10); Neutrophil 71 % (42-75); Platelet Count 214 thou/uL (130-400); RBC Distribution Width 11.8 % (11.5-14.5); Red Blood Cell (RBC) Count 3.27 mill/uL (4.70-6.10)
[2020-12-08] MEDS: FLU VACC QS2021-22(65YR UP)/PF 240 MCG/0.7 ML SYRINGE IM ONE (08:28)
[2020-12-08] MEDS: Dextrose 5% in Water 1,000 ML IV SCH ×2 (08:29→21:25)
[2020-12-08] MEDS: Enoxaparin Sodium 80 MG/0.8 ML SYRINGE SC SCH ×2 (08:57→20:38)
[2020-12-08] MEDS: Pantoprazole 40 MG VIAL IVP SCH (08:58)
[2020-12-08] MEDS: Polyethylene Glycol 3350 17 GM Packet PER TUBE SCH (08:58)
[2020-12-08] MEDS ORDERED: Morphine 4 MG/ML VIAL SLOW IVP PRN (11:57)
[2020-12-09] MEDS: Piperacillin/Tazobactam 3.375 GM in Sodium Chloride 0.9% 100 ML IVPB SCH (04:30)
[2020-12-09 06:00] LABS: Hemoglobin 10.7 g/dL (14.0-18.0); Mean Corpuscular HGB CONC 33.7 g/dL (32.0-36.0); Mean Corpuscular Hemoglobin 33.8 pg (27.0-31.0); Mean Platelet Volume 8.4 fL (7.4-10.4); Platelet Count 246 thou/uL (130-400); RBC Distribution Width 11.4 % (11.5-14.5); Red Blood Cell (RBC) Count 3.16 mill/uL (4.70-6.10)
[2020-12-09 06:09] LABS: Vancomycin, Trough 10.8 ug/mL
[2020-12-09 06:15] LABS: ALT (SGPT) 28 U/L (8-55); AST (SGOT) 26 U/L (5-34); Albumin 2.4 g/dL (3.4-4.8); Alkaline Phosphatase 73 U/L (40-110); Anion Gap 9 mmol/L (10-20); BUN (Urea Nitrogen) 12 mg/dL (8.4-25.7); Bilirubin, Total 0.5 mg/dL (0.2-1.2); Calc. Creatinine Clearance 86 mL/min (70-130); Calcium 8.3 mg/dL (7.8-10.44); Carbon Dioxide 21 mmol/L (23-31); Chloride 113 mmol/L (98-107); Glucose 103 mg/dL (80-115); Potassium 3.2 mmol/L (3.5-5.1); Protein, Total 5.4 g/dL (5.8-8.1); Sodium 140 mmol/L (136-145)
[2020-12-09] MEDS: Vancomycin HCl 750 MG in Sodium Chloride 0.9% 250 ML 250 ML IVPB SCH (06:16)
[2020-12-09 06:24] LABS: Band 2 % (5-11); Eosinophils 6 % (0-10); Lymphocytes 35 % (21-51); MDiff Complete? YES; Monocytes 6 % (0-10); Neutrophil 51 % (42-75)
[2020-12-09] MEDS ORDERED: Potassium Chloride 20 MEQ in Premix Bag 1 BAG IVPB SCH (06:30)
[2020-12-09] MEDS ORDERED: Potassium Chloride 40 MEQ in Sodium Chloride 0.9% 250 ML 250 ML IVPB SCH (07:00)
[2020-12-09] MEDS ORDERED: Vancomycin HCl 500 MG in Sodium Chloride 0.9% 100 ML IVPB SCH (07:00)
[2020-12-09 07:13] LABS: Magnesium 1.7 mg/dL (1.6-2.6); Phosphorus 2.1 mg/dL (2.3-4.7)
[2020-12-09] MEDS: Lactated Ringer's 1,000 ML IV SCH ×2 (07:18→23:56)
[2020-12-09] MEDS ORDERED: Potassium Phosphate 9 MMOL in Sodium Chloride 0.9% 100 ML IVPB SCH (08:00)
[2020-12-09] MEDS: Enoxaparin Sodium 80 MG/0.8 ML SYRINGE SC SCH ×2 (10:02→20:44)
[2020-12-09] MEDS: Pantoprazole 40 MG VIAL IVP SCH (10:03)
[2020-12-09] MEDS: Polyethylene Glycol 3350 17 GM Packet PER TUBE SCH (10:03)
[2020-12-09] MEDS ORDERED: Vancomycin 1 GM in Premix Bag 1 BAG IVPB SCH (18:00)
[2020-12-09] MEDS: Amoxicillin/Potassium Clav 875 MG TAB PO SCH (20:44)
[2020-12-10] MEDS ORDERED: HYDROcodone/Acetaminophen 5/325 mg Tablet PO PRN ×2 (06:36→06:45)
[2020-12-10 07:07] LABS: Hemoglobin 10.8 g/dL (14.0-18.0); Mean Corpuscular Hemoglobin 34.6 pg (27.0-31.0); Mean Corpuscular Volume 98.9 fL (78.0-98.0); Mean Platelet Volume 8.1 fL (7.4-10.4); Platelet Count 279 thou/uL (130-400); RBC Distribution Width 11.4 % (11.5-14.5); Red Blood Cell (RBC) Count 3.12 mill/uL (4.70-6.10); White Blood Cell (WBC) Count 7.8 thou/uL (4.8-10.8)
[2020-12-10 07:34] LABS: ALT (SGPT) 28 U/L (8-55); AST (SGOT) 24 U/L (5-34); Albumin 2.4 g/dL (3.4-4.8); Alkaline Phosphatase 69 U/L (40-110); Anion Gap 9 mmol/L (10-20); BUN (Urea Nitrogen) 9 mg/dL (8.4-25.7); Bilirubin, Total 0.5 mg/dL (0.2-1.2); Calc. Creatinine Clearance 0 mL/min (70-130); Calcium 8.4 mg/dL (7.8-10.44); Carbon Dioxide 22 mmol/L (23-31); Chloride 112 mmol/L (98-107); Globulin 2.9 g/dL (2.4-3.5); Glucose 71 mg/dL (80-115); Potassium 3.4 mmol/L (3.5-5.1); Protein, Total 5.3 g/dL (5.8-8.1); Sodium 140 mmol/L (136-145)
[2020-12-10] MEDS: Enoxaparin Sodium 80 MG/0.8 ML SYRINGE SC SCH (08:45)
[2020-12-10] MEDS: Megestrol Acetate 800 MG/20 ML UDCUP PO SCH (08:48)
[2020-12-10] MEDS: Pantoprazole 40 MG VIAL IVP SCH (08:48)
[2020-12-10] MEDS: Amoxicillin/Potassium Clav 875 MG TAB PO SCH ×2 (08:48→20:22)
[2020-12-10] MEDS: Polyethylene Glycol 3350 17 GM Packet PER TUBE SCH (08:49)
[2020-12-10 08:53] LABS: Band 3 % (5-11); Eosinophils 3 % (0-10); Lymphocytes 29 % (21-51); MDiff Complete? YES; Monocytes 5 % (0-10); Neutrophil 59 % (42-75); Platelet Morphology Comment Appears Adequate; Polychromasia SLIGHT = 2-3 cells (100X) (0-2/hpf)
[2020-12-10] MEDS ORDERED: Potassium Chloride 40 MEQ in Premix Bag 1 BAG IVPB SCH (09:00)
[2020-12-10] MEDS ORDERED: UDCUP PO SCH (09:00)
[2020-12-10] MEDS ORDERED: MEGESTROL ACETATE 400 MG/10 ML PO SCH (09:00)
[2020-12-10] MEDS: Polyethylene Glycol 3350 17 GM Packet PO SCH (09:23)
[2020-12-10] MEDS: Apixaban 5 MG TAB PO SCH ×2 (09:37→20:22)
[2020-12-10] MEDS: Lactated Ringer's 1,000 ML IV SCH (10:35)
[2020-12-10] MEDS: Potassium Chloride 20 MEQ in Premix Bag 1 BAG IVPB SCH ×2 (10:36→12:59)
[2020-12-10] MEDS ORDERED: Mirtazapine 15 MG TAB PO SCH (21:00)
[2020-12-11] MEDS: Lactated Ringer's 1,000 ML IV SCH ×2 (01:31→04:54)
[2020-12-11 05:36] VITALS: BMI 21.2
[2020-12-11] MEDS: Amoxicillin/Potassium Clav 875 MG TAB PO SCH (08:48)
[2020-12-11] MEDS: Megestrol Acetate 800 MG/20 ML UDCUP PO SCH (08:48)
[2020-12-11] MEDS: Pantoprazole 40 MG VIAL IVP SCH (08:52)
[2020-12-11] MEDS: Polyethylene Glycol 3350 17 GM Packet PO SCH (08:52)
[2020-12-11 08:58] LABS: Anion Gap 10 mmol/L (10-20); BUN (Urea Nitrogen) 7 mg/dL (8.4-25.7); Calc. Creatinine Clearance 98 mL/min (70-130); Calcium 8.6 mg/dL (7.8-10.44); Carbon Dioxide 21 mmol/L (23-31); Chloride 111 mmol/L (98-107); Glucose 63 mg/dL (80-115); Potassium 3.9 mmol/L (3.5-5.1); Sodium 138 mmol/L (136-145)
[2020-12-11] MEDS ORDERED: Apixaban 5 MG TAB PO SCH (09:00)
[2020-12-11 11:38] VITALS: BP 115/74; TEMP 99.2
[2020-12-11] MEDS: FLU VACC QS2021-22(65YR UP)/PF 240 MCG/0.7 ML SYRINGE IM ONE (12:57)
== END 2020-12-11 13:15 | disposition home or self-care (01) | DRG 871 ==
LOC: ERS 18:53 → CCU 20:38 → T4-A 12-09 18:43
PROVIDERS: ADMIT Family Medicine; ATTEND Family Medicine
PROC: 0BH17EZ Insertion of Endotracheal Airway into Trachea, Via Natural or Artificial Opening (ICD-10-PCS; principal; 2020-12-05)
PROC: 5A1945Z Respiratory Ventilation, 24-96 Consecutive Hours (ICD-10-PCS; 2020-12-05)
PROC: 0D9670Z Drainage of Stomach with Drainage Device, Via Natural or Artificial Opening (ICD-10-PCS; 2020-12-06)
PROC: 3E0333Z Introduction of Anti-inflammatory into Peripheral Vein, Percutaneous Approach (ICD-10-PCS; 2020-12-06)
DX: A41.9 Sepsis, unspecified organism (principal); J96.00 Acute respiratory failure, unspecified whether with hypoxia or hypercapnia; J69.0 Pneumonitis due to inhalation of food and vomit; G93.41 Metabolic encephalopathy; I26.99 Other pulmonary embolism without acute cor pulmonale; I63.9 Cerebral infarction, unspecified; C34.90 Malignant neoplasm of unspecified part of unspecified bronchus or lung; C79.31 Secondary malignant neoplasm of brain; C79.51 Secondary malignant neoplasm of bone; E87.2 Acidosis; C16.9 Malignant neoplasm of stomach, unspecified; N17.9 Acute kidney failure, unspecified; E87.0 Hyperosmolality and hypernatremia; R65.20 Severe sepsis without septic shock; Z20.822 Contact with and (suspected) exposure to COVID-19; E11.22 Type 2 diabetes mellitus with diabetic chronic kidney disease; N40.0 Benign prostatic hyperplasia without lower urinary tract symptoms; E78.5 Hyperlipidemia, unspecified; I12.9 Hypertensive chronic kidney disease with stage 1 through stage 4 chronic kidney disease, or unspecified chronic kidney disease; N18.2 Chronic kidney disease, stage 2 (mild); E86.0 Dehydration; E87.8 Other disorders of electrolyte and fluid balance, not elsewhere classified; K22.2 Esophageal obstruction; E83.52 Hypercalcemia; I45.81 Long QT syndrome; E78.00 Pure hypercholesterolemia, unspecified; I45.10 Unspecified right bundle-branch block; D63.1 Anemia in chronic kidney disease; E87.6 Hypokalemia; F17.210 Nicotine dependence, cigarettes, uncomplicated; Z92.3 Personal history of irradiation; Z79.84 Long term (current) use of oral hypoglycemic drugs; Z79.899 Other long term (current) drug therapy; Z78.1 Physical restraint status
CPT/HCPCS: 36415; 36416; 36600; 70551; 71045; 71275; 80048; 80053; 80202; 82607; 82746; 82805; 83605; 83735; 84100; 84145; 84484; 85007; 85027; 90471; 90662; 94002; 94003; 96365; 96376; 99292; C9113; G0008; J1100; J1644; J1650; J2543; J3370; J3480; J3490; J7042; J7050; J7070; J7120; Q9967; U0002